=== PATIENT | female | born 1945 | race Caucasian/White ===

== ENCOUNTER 2020-07-05 09:30 | Day surgery (SDC) | payer MEDICARE, OTHER ==
[~2020-07-05] VITALS: Ht 157.5 cm; Wt 74.8 kg
[~2020-07-05 09:30] MED LIST: COZAAR100 MG PO; CYMBALTA60 MG PO; ESCITALOPRAM OX10 MG PO; FLOVENT DISKUS50 MCG INH; GLIPIZIDE ER5 MG PO; GLUCOPHAGE500 MG PO; HYDROCHLOROTHIA25 MG PO; MELOXICAM7.5 MG PO; PIOGLITAZONE HC30 MG PO; PIOGLITAZONE HC45 MG PO; PREGABALIN100 MG PO; TRAZODONE HCL50 MG PO; TRIDERM28.4 GM TOP
--- NOTE | 2020-07-05 12:43 | NUR ---
07/05/20 1243 Yanely Albert 1238 PATIENT ARRIVES TO PACU AWAKE BUT DROWSY, DENIES PAIN OR NAUSEA. ONLY C/O OF FEELING ANXIOUS. REASSURED PATIENT PROCEDURE WAS COMPLETE AND THAT SHE WAS IN THE RECOVERY ROOM. PATIENT RESTING QUIETLY. RESP EVEN AND UNLABORED, ROOM AIR SATS >92%.
--- NOTE | 2020-07-08 11:30 | OR ---
[facility] [address], [place] [address] Signed DATE OF OPERATION: 07/05/2020 SURGEON: Darlene Hylton MD PREOPERATIVE DIAGNOSES: 1. Gastroesophageal reflux symptoms. 2. Voice hoarseness and weakness with dysphagia. POSTOPERATIVE DIAGNOSES: 1. No evidence of esophagitis; diffuse gastritis. 2. Normal flap valve. 3. Apparent hypertrophy of aryepiglottic folds, normal-appearing vocal cords proper. PROCEDURE: Esophagogastroduodenoscopy with biopsy. ANESTHESIA: Intravenous sedation, fentanyl 100 mcg and Versed 3 mg. INDICATIONS: This 74-year-old white woman is a patient of Dr. Barrett and has had reflux symptoms well managed with PPI, but discontinued on the basis of her concerns about warning label on packaging. The patient has had problems of voice weakness and progressive hoarseness as well, worse since last seen in the office on 05/27/2020. She has low-grade dysphagia as well. She does have history of tonsillectomy. She is admitted at this time to undergo upper endoscopy to better characterize the problem. She understands the risks of bleeding, infection, perforation, and wished to proceed. FINDINGS: The patient's voice is distinctly hoarse or weak. The vocal cords were visualized and without signs of nodule, but there was marked hypertrophy of the arytenoid folds without ulceration or neoplastic change. Advancement of the scope into the esophagus was only slightly impeded. The esophagus appeared normal. The stomach had mild chronic gastritis. The duodenum had mild inflammation as well. Attempts at better characterizing the hypertrophied tissue of the hypopharynx were unsuccessful due to the patient's tolerance issues. DESCRIPTION OF PROCEDURE: The patient was brought to the endoscopy suite given topical lidocaine spray Electronically Signed By: DARLENE HYLTON MD 07/08/20 1130 PATIENT NAME: NANDA DELUNA OPERATIVE REPORT DATE OF : 47 REPORT #: [id number] PHYSICIAN: DARLENE HYLTON MD PCP: OSCAR BARRETT MD REPORT IS CONFIDENTIAL AND NOT TO BE RELEASED WITHOUT AUTHORIZATION [facility] [address], [place] [address] Signed hypopharyngeal anesthesia and placed in lateral decubitus position given intravenous sedation to the point of slurred speech and nystagmus. A bite block was placed. An Olympus video upper endoscope was passed into the hypopharynx. Examination of the vocal cords was rather brief and abbreviated initially due to some resistance of the patient for swallowing the endoscope in the usual way. There appeared to be hypertrophy of the aryepiglottic folds. The scope was advanced to the esophagus and back and throughout its length it appeared essentially normal without signs of Crouch's epithelium stricture and neoplasm. The scope was advanced to the stomach, which was insufflated with air as diffuse reticular gastritis was noted. Pylorus was normal. Scope was passed through into the duodenum. The duodenum had chronic inflammation, no sign of scar or stricture and biopsies were obtained. The scope was withdrawn. A biopsy was taken of the antrum and more proximal stomach, both of which appeared to have diffuse gastritis, and the flap valve appeared normal, there was no sign of hiatal hernia. Scope was withdrawn to the distal esophagus, which was normal. Biopsies were obtained there and the scope was withdrawn to the mid esophagus where additional biopsies were obtained. Careful withdrawal of scope through the proximal esophagus and area of the hypopharynx allowed for brief visualization of the vocal cord once again, which appeared free of nodule, although the posterior commissure could not be well visualized, but a fair apparent hypertrophy of the arytenoid soft tissue. The scope was withdrawn and removed. The patient was taken to the recovery room in good condition. CONCLUDING DIAGNOSIS: No sign of esophageal stricture. I believe she should be seen by ENT surgeon for flexible nasopharyngoscopy to better characterize the findings of her symptoms as well as anatomic finding of hypertrophy of the aryepiglottic fold. We will attempt to set up plan with Dr. Garcia in that regard. MD DEAN Vu/CARLL /[id number] Copies: Electronically Signed By: DARLENE HYLTON MD 07/08/20 1130 PATIENT NAME: NANDA DELUNA OPERATIVE REPORT DATE OF : 47 REPORT #: [id number] PHYSICIAN: DARLENE HYLTON MD PCP: OSCAR BARRETT MD REPORT IS CONFIDENTIAL AND NOT TO BE RELEASED WITHOUT AUTHORIZATION [address] [address] Signed ~ Electronically Signed By: DARLENE HYLTON MD 07/08/20 1130 PATIENT NAME: NANDA DELUNA OPERATIVE REPORT DATE OF : 47 REPORT #: [id number] PHYSICIAN: DARLENE HYLTON MD PCP: OSCAR BARRETT MD REPORT IS CONFIDENTIAL AND NOT TO BE RELEASED WITHOUT AUTHORIZATION
== END 2020-07-05 13:15 | disposition home or self-care (01) ==
LOC: OPS 09:30 → DS 09:30 → OPS 13:15
PROVIDERS: ATTEND Surgery
PROC: 0DB78ZX Excision of Stomach, Pylorus, Via Natural or Artificial Opening Endoscopic, Diagnostic (ICD-10-PCS; 2020-07-05)
PROC: 0DB28ZX Excision of Middle Esophagus, Via Natural or Artificial Opening Endoscopic, Diagnostic (ICD-10-PCS; 2020-07-05)
PROC: 0DB38ZX Excision of Lower Esophagus, Via Natural or Artificial Opening Endoscopic, Diagnostic (ICD-10-PCS; 2020-07-05)
PROC: 0DB98ZX Excision of Duodenum, Via Natural or Artificial Opening Endoscopic, Diagnostic (ICD-10-PCS; principal; 2020-07-05 09:30)
DX: R13.10 Dysphagia, unspecified (principal); R49.0 Dysphonia; R53.1 Weakness; I10 Essential (primary) hypertension; E11.9 Type 2 diabetes mellitus without complications; K21.9 Gastro-esophageal reflux disease without esophagitis; F32.9 Major depressive disorder, single episode, unspecified; G89.29 Other chronic pain; M54.5 Low back pain; Z79.899 Other long term (current) drug therapy; Z79.84 Long term (current) use of oral hypoglycemic drugs; Z86.010 Personal history of colon polyps; Z90.49 Acquired absence of other specified parts of digestive tract
CPT/HCPCS: 99153; G0500; J2250; J3010; J7121

== ENCOUNTER 2020-09-26 17:40 | Emergency (ER) | payer MEDICARE, OTHER ==
[~2020-09-26] VITALS: Ht 157.5 cm; Wt 76.7 kg
[2020-09-26] MEDS ORDERED: FAMCICLOVIR500 MG PO (18:34)
[2020-09-26] MEDS ORDERED: NORCO 5-325 TA1 EACH PO (18:34)
== END 2020-09-26 18:58 | disposition home or self-care (01) ==
LOC: ED 17:40
DX: B02.9 Zoster without complications (principal); G43.909 Migraine, unspecified, not intractable, without status migrainosus; I10 Essential (primary) hypertension; E11.9 Type 2 diabetes mellitus without complications; Z79.899 Other long term (current) drug therapy
CPT/HCPCS: 99283

== ENCOUNTER 2022-02-06 16:50 | Emergency (ER) | payer MEDICARE, OTHER ==
[~2022-02-06] VITALS: Ht 157.5 cm; Wt 75.3 kg
[~2022-02-06 16:50] MED LIST changes: +FAMCICLOVIR500 MG PO; +NORCO 5-325 TA1 EACH PO
--- OUTSIDE RECORDS SUMMARY | 2022-02-06 18:36 | XMS ---
PreManage Notification: NANDA DELUNA Security Signal Constructor Events No recent Security Events currently on file [facility] PROVIDERS There are no care providers on record at this time. Ravi has no Care Guidelines for this patient. Lindsey VISIT COUNT (12 MO.) 1 AHMET Bui TOTAL 1 NOTE: Visits indicate total known visits. ED/UCC VISIT TRACKING (12 MO.) 02/06/2022 16:51 AHMET Perez OR TYPE: Emergency COMPLAINT: - BACK PAIN INPATIENT VISIT TRACKING (12 MO.) No inpatient visits to display in this time frame [email or web address]
[2022-02-06] MEDS ORDERED: medrol dose pack (21:27)
[2022-02-06] MEDS ORDERED: ULTRAM50 MG PO (21:27)
== END 2022-02-06 21:40 | disposition home or self-care (01) ==
LOC: ED 16:50
DX: M54.16 Radiculopathy, lumbar region (principal); G43.909 Migraine, unspecified, not intractable, without status migrainosus; I10 Essential (primary) hypertension; E11.9 Type 2 diabetes mellitus without complications; Z79.899 Other long term (current) drug therapy
CPT/HCPCS: 72131; 96374; 96375; 99283-25; J1885; J3360; J7512

== ENCOUNTER 2024-04-21 14:12 | Emergency (ER) | payer MEDICARE, OTHER ==
[~2024-04-21] VITALS: Ht 157.5 cm; Wt 80.5 kg
[~2024-04-21 14:12] MED LIST changes: +ACTOS30 MG PO; +METFORMIN HCL500 MG PO; +METHYLPREDNISOLO; +OMEPRAZOLE20 MG PO; +ULTRAM50 MG PO; +ZOLPIDEM TARTRA10 MG PO; +[UNRECOGNIZED DRUG - OTHER] PO; +medrol dose pack
[2024-04-21] MEDS ORDERED: FLUCONAZOLE 200 MG TAB PO ONE (16:30)
[2024-04-21] MEDS ORDERED: ANTIFUNGAL113 GM TD (17:23)
[2024-04-21] MEDS ORDERED: DIFLUCAN200 MG PO (17:23)
[2024-04-21 17:43] VITALS: BP 164/75
== END 2024-04-21 17:42 | disposition home or self-care (01) ==
LOC: ED 14:12
DX: B37.2 Candidiasis of skin and nail (principal); I10 Essential (primary) hypertension; E11.9 Type 2 diabetes mellitus without complications; Z88.8 Allergy status to other drugs, medicaments and biological substances; Z79.84 Long term (current) use of oral hypoglycemic drugs; Z79.899 Other long term (current) drug therapy
CPT/HCPCS: 99282